=== PATIENT | male | born 1945 | race Caucasian/White ===

== ENCOUNTER 2025-01-06 12:38 | Inpatient (IN) | payer MEDICARE, OTHER, SELFPAY ==
[2025-01-06] VITALS (14 sets, daily range): BP systolic 90–180; BP diastolic 40–88; PULSE 81–90; RESP 12–19; TEMP 36.2–36.7; O2SAT 93–98; BMI 33.3
[2025-01-06 12:57] LABS: Add Manual Diff / Slide Review NO; Hematocrit 44.0 % (41-53); Hemoglobin 14.7 g/dL (13.5-17.5); Lymphocytes Absolute Auto 500 /uL (1100-4500); Mean Corpuscular HGB Conc 33.4 % (30-36); Mean Corpuscular Hemoglobin 30.4 PG (26-34); Mean Corpuscular Volume 91.1 fL (80-100); Platelet Count 208 X10^3/uL (150-400)
[2025-01-06 13:05] LABS: INR 1.1 (0.9-1.3); Prothrombin Time 12.7 SECONDS (9.4-12.5)
[2025-01-06 13:07] LABS: PTT Partial Thromboplastin Tim 27 SECONDS (25.1-36.5)
--- NOTE | 2025-01-06 13:07 | DI.CT.S_ITS ---
PROCEDURE: CT ANGIO ABD/PEL GI BLEED INDICATIONS: GI bleed TECHNIQUE: After the administration of intravenous contrast, 2.5 mm sections acquired from the diaphragm to the iliac crests. 10 mm maximum intensity projection (MIP) coronal and sagittal reformats were then performed. For radiation dose reduction, the following was used: automated exposure control. COMPARISON: None. FINDINGS: Image quality: Diagnostic. Abdominal aorta: No aortic aneurysm or evidence of acute aortic syndrome. Mesenteric arteries: Patent without hemodynamically significant stenosis. Renal arteries: Patent without hemodynamically significant stenosis. Lower chest: Moderate hiatal hernia. ABDOMEN: Liver: No solid mass. Gallbladder: No radiopaque gallstones or wall thickening. Biliary ducts: No biliary dilation. Pancreas: No ductal dilation. Spleen: Size is within normal limits. Adrenal Glands: No adrenal nodules. Kidneys and Ureters: No hydronephrosis. No solid mass. No complex renal cystic lesion which requires follow up. Bilateral renal sinus cysts. Stomach and Bowel: Severe wall thickening of the transverse and descending colon, with pericolonic fat stranding. Noninflamed diverticulum are present in the sigmoid colon. Normal appendix. No evidence of active hemorrhage. Peritoneum: No abnormal intraperitoneal fluid. No free air. Ventral Wall: No hernia. Abdominal Nodes: No retroperitoneal or mesenteric adenopathy by size criteria. Vessels: Aorta, as above. Normal IVC. PELVIS: Pelvic Organs: Unremarkable. Bladder: Unremarkable. Pelvic Nodes: No enlarged lymph nodes. Miscellaneous: Fat within the inguinal canals. Bones: No aggressive osseous abnormality. IMPRESSION: Colitis of the transverse and descending colon, with severe wall thickening. Extent raises the concern for C difficile. No evidence of active hemorrhage. Dictated by: Jonathan Brewer M.D. on 01/06/2025 at 13:36 Approved by: Jonathan Brewer M.D. on 01/06/2025 at 13:38
[2025-01-06 13:08] LABS: Alanine Aminotransferase 19 IU/L (<50); Albumin 4.7 g/dL (3.5-5.0); Albumin Globulin Ratio 1.5 (1.0-2.8); Alkaline Phosphatase 52 U/L (38-126); Blood Urea Nitrogen 40 mg/dL (9-20); Calcium 9.5 mg/dL (8.4-10.2); Carbon Dioxide 24 mmol/L (22-32); Chloride 101 mmol/L (98-107); Estimated Glomerular Filt Rate 48 mL/min (>60); Globulin 3.2 g/dL (1.7-4.1); Glucose 329 mg/dL (70-99); HEMOLYSIS < 15 (0-50); Potassium 4.1 mmol/L (3.4-5.1); Sodium 136 mmol/L (137-145); Total Protein 7.9 g/dL (6.3-8.2)
--- NOTE | 2025-01-06 14:33 | ED_ITS ---
HPI - GI Bleed General Chief complaint: GI Bleed Stated complaint: GI bleed Time Seen by Provider: 01/06/25 12:38 History of Present Illness HPI Narrative: 79-year-old gentleman comes with abdominal pain with blood in stool started earlier today and decreased appetite. Patient denies fever, chills, back pain, urinary complaints, shortness of breath, chest pain. Other than what is stated 14 point review of system is negative. Related Data Allergies Allergy/AdvReac Type Severity Reaction Status Date / Time [id number]-[id number] Reductase AdvReac Verified 01/06/25 12:44 Inhibitor Review of Systems Review of Systems ROS Unobtainable: All systems reviewed & are unremarkable except as noted in HPI and below Exam Narrative Exam Narrative: GENERAL: [79] year old patient appears stated age. Well-developed patient, in mild distress. HEAD: Atraumatic. Normocephalic. EYES: Pupils equal round and reactive. Extraocular motions intact. No scleral icterus. No injection or drainage. ENT: Nose without bleeding, purulent drainage. Throat without erythema, tonsillar hypertrophy or exudate. Airway patent. NECK: Trachea midline. Non tender CARDIOVASCULAR: Regular rate and rhythm without murmurs, gallops, or rubs. RESPIRATORY: Clear to auscultation. Breath sounds equal bilaterally. No wheezes, rales, or rhonchi. GASTROINTESTINAL: Abdomen soft, non-tender, nondistended. Rectal: Guaic positive no ext hemorrhoid or fissure seen EXTREMITIES: No edema or joint tenderness. BACK: Nontender without deformity or crepitance. No flank tenderness. NEURO: AOx3. SKIN: No rash or erythema of visible areas Initial Vital Signs Initial Vital Signs: Vital Signs Temperature 97.2 F L 01/06/25 12:43 Pulse Rate 84 01/06/25 12:43 Respiratory Rate 16 01/06/25 12:43 Blood Pressure 136/88 01/06/25 12:43 Pulse Oximetry 97 01/06/25 12:43 Oxygen Delivery Method Room Air 01/06/25 12:43 Course Orders Ordered: ED Orders 01/06/25 12:47 Complete Blood Count AUTO DIFF Stat Comprehensive Metabolic Panel Stat PTT Partial Thromboplastin Tesfaye Stat Prothrombin Time INR Stat 01/06/25 13:07 CT angio Abd/Pel GI Bleed Stat 01/06/25 13:35 Type and Screen Stat Ondansetron HCl (Ondansetron 4 Mg/2 Ml Inj) 4 mg IV NOW PRN PRN Reason: Nausea And Vomiting Ondansetron HCl (Ondansetron 4 Mg Odt) 4 mg PO NOW PRN PRN Reason: Nausea And Vomiting Vital Signs Vital signs: Vital Signs - 8 hr 01/06/25 12:43 01/06/25 12:43 01/06/25 12:43 Temperature 97.2 F L Pulse Rate 84 84 Respiratory Rate 16 Blood Pressure 136/88 156/68 H Pulse Oximetry 97 93 Oxygen Delivery Method Room Air 01/06/25 13:00 01/06/25 13:01 01/06/25 13:01 Temperature Pulse Rate 81 81 Respiratory Rate Blood Pressure 160/75 H Pulse Oximetry 97 97 Oxygen Delivery Method 01/06/25 13:30 01/06/25 13:42 01/06/25 13:42 Temperature Pulse Rate 83 82 Respiratory Rate 19 Blood Pressure 168/79 H Pulse Oximetry 97 97 Oxygen Delivery Method 01/06/25 14:00 01/06/25 14:00 Temperature Pulse Rate 81 Respiratory Rate 18 Blood Pressure 180/86 H Pulse Oximetry 96 Oxygen Delivery Method MDM - GI Bleed Lab Data 01/06/25 12:47 01/06/25 12:47 Labs: Lab Results 01/06/25 Range/Units 12:47 WBC 17.7 H (4.5-11.0) X10^3/uL RBC 4.83 (4.5-5.9) X10^6/uL Hgb 14.7 (13.5-17.5) g/dL Hct 44.0 (41-53) % MCV 91.1 (80-100) fL MCH 30.4 (26-34) PG MCHC 33.4 (30-36) % RDW 14.0 (11.6-14.8) % Plt Count 208 (150-400) X10^3/uL Neut % (Auto) 92.0 H (50-75) % Lymph % (Auto) 2.8 L (25-40) % [place] % (Auto) 4.7 (3-14) % Eos % (Auto) 0.2 L (2-4) % Baso % (Auto) 0.3 (0-2) % Neut # (Auto) 49625 H (3240-4702) /uL Lymph # (Auto) 500 L (9244-5157) /uL [place] # (Auto) 800 (0-900) /uL Eos # (Auto) 0 (0-450) /uL Baso # (Auto) 100 (0-100) /uL PT 12.7 H (9.4-12.5) SECONDS INR 1.1 (0.9-1.3) APTT 27 (25.1-36.5) SECONDS Sodium 136 L (137-145) mmol/L Potassium 4.1 (3.4-5.1) mmol/L Chloride 101 (98-107) mmol/L Carbon Dioxide 24 (22-32) mmol/L BUN 40 H (9-20) mg/dL Creatinine 1.48 H (0.66-1.25) mg/dL Estimated GFR 48 L (>60) mL/min BUN/Creatinine Ratio 27.0 H (6-22) Glucose 329 H (70-99) mg/dL Calcium 9.5 (8.4-10.2) mg/dL Total Bilirubin 0.7 (0.2-1.3) mg/dL AST 41 (17-59) IU/L ALT 19 (<50) IU/L Alkaline Phosphatase 52 (38-126) U/L Total Protein 7.9 (6.3-8.2) g/dL Albumin 4.7 (3.5-5.0) g/dL Globulin 3.2 (1.7-4.1) g/dL Albumin/Globulin Ratio 1.5 (1.0-2.8) Point of Care Testing Stool Occult Blood Positive Imaging Data CT scan - abdomen/pelvis: Radiologist's Impression: [place] [address] CT Scan Report Signed Patient: Roney Meraz MR#: [id number] : 1945 Acct:[id number] Age/Sex: 79 / M Date of Service: 01/06/25 Loc: ED Accession Number: [id number] Procedure: CT angio Abd/Pel GI Bleed Ordering Provider: Cristobal Urrutia D.O. PROCEDURE: CT ANGIO ABD/PEL GI BLEED INDICATIONS: GI bleed TECHNIQUE: After the administration of intravenous contrast, 2.5 mm sections acquired from the diaphragm to the iliac crests. 10 mm maximum intensity projection (MIP) coronal and sagittal reformats were then performed. For radiation dose reduction, the following was used: automated exposure control. COMPARISON: None. FINDINGS: Image quality: Diagnostic. Abdominal aorta: No aortic aneurysm or evidence of acute aortic syndrome. Mesenteric arteries: Patent without hemodynamically significant stenosis. Renal arteries: Patent without hemodynamically significant stenosis. Lower chest: Moderate hiatal hernia. ABDOMEN: Liver: No solid mass. Gallbladder: No radiopaque gallstones or wall thickening. Biliary ducts: No biliary dilation. Pancreas: No ductal dilation. Spleen: Size is within normal limits. Adrenal Glands: No adrenal nodules. Kidneys and Ureters: No hydronephrosis. No solid mass. No complex renal cystic lesion which requires follow up. Bilateral renal sinus cysts. Stomach and Bowel: Severe wall thickening of the transverse and descending colon, with pericolonic fat stranding. Noninflamed diverticulum are present in the sigmoid colon. Normal appendix. No evidence of active hemorrhage. Peritoneum: No abnormal intraperitoneal fluid. No free air. Ventral Wall: No hernia. Abdominal Nodes: No retroperitoneal or mesenteric adenopathy by size criteria. Vessels: Aorta, as above. Normal IVC. PELVIS: Pelvic Organs: Unremarkable. Bladder: Unremarkable. Pelvic Nodes: No enlarged lymph nodes. Miscellaneous: Fat within the inguinal canals. Bones: No aggressive osseous abnormality. IMPRESSION: Colitis of the transverse and descending colon, with severe wall thickening. Extent raises the concern for C difficile. No evidence of active hemorrhage. Dictated by: Jonathan Brewer M.D. on 01/06/2025 at 13:36 Approved by: Jonathan Brewer M.D. on 01/06/2025 at 13:38 MDM Narrative Medical decision making narrative: All lab work, vital signs, nurse triage note, medication list, previous ER visits, and all imaging studies reviewed.WBC 17.7 Hg 14.7 Plt 208 sodium 136 potassium 4.1 BUN [address] abdomen and pelvis colitis of the transverse and descending colon with severe wall thickening. . Extent raises concern for C diff evidence of active hemorrhage. Case discussed with Dr.Snedecker valentine IV flagyl Discharge Plan Departure Clinical Impression: Colitis
[2025-01-06 14:48] LABS: Lipase 33 U/L (23-300)
[2025-01-06] MEDS: metroNIDAZOLE 500 MG/100 ML PIGGYBACK 100 MG IV (14:58)
[2025-01-06] MEDS: ONDANSETRON 4 MG/2 ML INJ IV (14:58)
--- NOTE | 2025-01-06 16:15 | P.HP_ITS ---
History of Present Illness History of Present Illness Date Patient Seen: 01/06/25 Chief complaint: Colitis with abdominal pain rectal bleeding Narrative: Chief complaint Lower abdominal pain with colitis on CT with rectal bleeding History of present illness: 79-year-old male onset on the evening of 01/05 about 10:00 p.m. sudden severe abdominal pain sat on the toilet for about 2 hours past a large amount of stool followed by diarrhea with some bleeding. Throughout the day today is having increasing abdominal pain. Not had any vomiting but does not feel like eating much Workup in the emergency department significant for leukocytosis white count 95890 with 92% neutrophils PADDY BUN 40 creatinine 1.5 glucose [address] abdomen and pelvis: Colitis of the transverse and descending colon, with severe wall thickening. Extent raises the concern for C difficile. No evidence of active hemorrhag Patient eats beef chicken and foster and moose Was hunting in [place] at the end of October Review of systems: No fever or chills rigors No chest pain palpitations shortness for breath No urinary symptom Paresthesia No unusual weight loss or weight gain Physical exam: Elderly male large frame no acute distress HEENT unremarkable Heart rate and rhythm regular lungs clear Abdomen distended but nontender Extremities no edema Alert and oriented Neurologic nonfocal Assessment and plan: Colitis not a particular risk for Clostridium difficile colitis may be other infectious E coli Salmonella Shigella or other versus ischemic * Given Flagyl in the ED * Empiric Zosyn * GI film panel and C diff when produces fecal sample * Clear liquid diet advance as tolerated * IV fluid resuscitation Acute kidney injury * Likely due to prerenal * No signs of hemolysis bilirubin normal Type 2 diabetes mellitus with hyperglycemia * Sliding scale insulin as needed DVT prophylaxis: * SCDs only due to rectal bleeding Code status: * Full code blue Disposition: * Inpatient * Estimate 3 days of hospitalization Time based billing: * 55 minutes were involved in the evaluation of this patient including [id number] evaluation discussion with emergency provider review of images objective laboratory data patient examination discussion with treatment team Meds Home Medications and Allergies Allergies Allergy/AdvReac Type Severity Reaction Status Date / Time [id number] Reductase AdvReac Verified 01/06/25 12:44 Inhibitor Exam Vital Signs (past 8 hours): - 01/06/25 12:43 01/06/25 12:43 01/06/25 12:43 Temperature 97.2 F L Pulse Rate 84 84 Respiratory Rate 16 Blood Pressure 136/88 156/68 H Pulse Oximetry 97 93 Oxygen Delivery Method Room Air 01/06/25 13:00 01/06/25 13:01 01/06/25 13:01 Temperature Pulse Rate 81 81 Respiratory Rate Blood Pressure 160/75 H Pulse Oximetry 97 97 Oxygen Delivery Method 01/06/25 13:30 01/06/25 13:42 01/06/25 13:42 Temperature Pulse Rate 83 82 Respiratory Rate 19 Blood Pressure 168/79 H Pulse Oximetry 97 97 Oxygen Delivery Method 01/06/25 14:00 01/06/25 14:00 Temperature Pulse Rate 81 Respiratory Rate 18 Blood Pressure 180/86 H Pulse Oximetry 96 Oxygen Delivery Method Oxygen Delivery Method Room Air Objective Labs 01/06/25 12:47 01/06/25 12:47 Labs: Laboratory Results - last 24 hr 01/06/25 01/06/25 01/06/25 12:47 13:35 13:38 WBC 17.7 H RBC 4.83 Hgb 14.7 Hct 44.0 MCV 91.1 MCH 30.4 MCHC 33.4 RDW 14.0 Plt Count 208 Neut % (Auto) 92.0 H Lymph % (Auto) 2.8 L [place] % (Auto) 4.7 Eos % (Auto) 0.2 L Baso % (Auto) 0.3 Neut # (Auto) 16528 H Lymph # (Auto) 500 L [place] # (Auto) 800 Eos # (Auto) 0 Baso # (Auto) 100 PT 12.7 H INR 1.1 APTT 27 Sodium 136 L Potassium 4.1 Chloride 101 Carbon Dioxide 24 BUN 40 H Creatinine 1.48 H Estimated GFR 48 L BUN/Creatinine Ratio 27.0 H Glucose 329 H Calcium 9.5 Total Bilirubin 0.7 AST 41 ALT 19 Alkaline Phosphatase 52 Total Protein 7.9 Albumin 4.7 Globulin 3.2 Albumin/Globulin Ratio 1.5 Lipase 33 Blood Type A Negative Antibody Screen Negative Assessment & Plan Time-Based Coding :: [TOTAL MINUTES] spent with patient and on the chart (including review of chart, obtaining history, exam, reviewing outside data, placing orders, documenting exam and treatment plan, and counseling patient) on [DATE].
--- NOTE | 2025-01-06 17:08 | PC.NURSE ---
offered pt food, tray, wanted to go to room first, pt brought up in stretcher by [facility]
[2025-01-06] MEDS: PIPERACILLIN/TAZO 3.375 GM in SODIUM CHLORIDE 0.9% 100 ML IV (17:46)
[2025-01-06] MEDS: SODIUM CHLORIDE 0.9% 1,000 ML 100 ML IV (17:47)
--- NOTE | 2025-01-06 19:36 | PC.NURSE ---
pt admitted to 213 from ED, alert and oriented x 4, oriented to and hospital, call light within reach, bed alarmed.
[2025-01-07 00:06] LABS: Clostridium difficile toxin AB Not Detected (Not Detect); Enteroaggregative E.coli Not Detected (Not Detect); Enteropathogenic E.coli Not Detected (Not Detect); Enterotoxigenic E.coli It/st Not Detected (Not Detect); Plesiomonsa shigelloides Not Detected (Not Detect); Shiga-like toxin-prod E.coli Not Detected (Not Detect)
[2025-01-07] MEDS: PIPERACILLIN/TAZO 3.375 GM in SODIUM CHLORIDE 0.9% 100 ML IV ×3 (00:10→16:43)
[2025-01-07 07:45] VITALS: BP 134/56; PULSE 86; RESP 16; O2SAT 96
--- NOTE | 2025-01-07 08:04 | PC.NURSE ---
Patient is alert and oriented x4, he is moving well in his room. BS 198, patient states that he does not take insulin and his sugar has been high since being here. Abdomen is distended and slightly tender, bowel tones are hypoactive. Patient has been having bowel movements with blood present. Will monitor for this, he is using the bsc.
[2025-01-07 08:40] LABS: Add Manual Diff / Slide Review NO; Hematocrit 39.1 % (41-53); Hemoglobin 13.2 g/dL (13.5-17.5); Lymphocytes Absolute Auto 1200 /uL (1100-4500); Mean Corpuscular HGB Conc 33.8 % (30-36); Mean Corpuscular Hemoglobin 30.5 PG (26-34); Mean Corpuscular Volume 90.4 fL (80-100); Platelet Count 181 X10^3/uL (150-400)
[2025-01-07 08:57] LABS: Alanine Aminotransferase 13 IU/L (<50); Albumin 3.9 g/dL (3.5-5.0); Albumin Globulin Ratio 1.3 (1.0-2.8); Alkaline Phosphatase 49 U/L (38-126); Blood Urea Nitrogen 33 mg/dL (9-20); Calcium 8.6 mg/dL (8.4-10.2); Carbon Dioxide 23 mmol/L (22-32); Chloride 106 mmol/L (98-107); Estimated Glomerular Filt Rate > 60 mL/min (>60); Globulin 2.9 g/dL (1.7-4.1); Glucose 214 mg/dL (70-99); HEMOLYSIS < 15 (0-50); Potassium 3.5 mmol/L (3.4-5.1); Sodium 137 mmol/L (137-145); Total Protein 6.8 g/dL (6.3-8.2)
[2025-01-07] MEDS: ASPIRIN EC 81 MG TABLET PO (10:29)
[2025-01-07] MEDS: POTASSIUM CHLORIDE IN WATER 10 MEQ/100 ML PIGGYBACK 100 MEQ IV ×2 (10:29→11:59)
--- NOTE | 2025-01-07 14:09 | P.PN_ITS ---
Subjective Subjective Date Patient Seen: 01/07/25 Interval history: Chief complaint Lower abdominal pain with colitis on CT with rectal bleeding History of present illness: 01/06: 79-year-old male onset on the evening of 01/05 about 10:00 p.m. sudden severe abdominal pain sat on the toilet for about 2 hours past a large amount of stool followed by diarrhea with some bleeding. Throughout the day today is having increasing abdominal pain. Not had any vomiting but does not feel like eating much Workup in the emergency department significant for leukocytosis white count 46108 with 92% neutrophils PADDY BUN 40 creatinine 1.5 glucose [address] abdomen and pelvis: Colitis of the transverse and descending colon, with severe wall thickening. Extent raises the concern for C difficile. No evidence of active hemorrhag Patient eats beef chicken and foster and moose Was hunting in [place] at the end of October Hospital course: 01/07: Somewhat less abdominal pain today still having frequent liquid bowel movements with blood spraying the toilet bowl no fever or chills or rigors overnight able to eat solid food without excruciating abdominal pain but does not have a good appetite white count is still 17,000 with 85% neutrophils down from 92% BUN and creatinine improved to 33 and 1.1 Review of systems: No fever or chills rigors No chest pain palpitations shortness for breath No urinary symptom Paresthesia No unusual weight loss or weight gain Physical exam: Elderly male large frame no acute distress HEENT unremarkable Heart rate and rhythm regular lungs clear Abdomen distended but nontender Extremities no edema Alert and oriented Neurologic nonfocal Assessment and plan: Colitis not a particular risk for Clostridium difficile colitis may be other infectious E coli Salmonella Shigella or other versus ischemic * Given Flagyl in the ED * Empiric Zosyn * GI film panel and C diff when produces fecal sample * Clear liquid diet advance as tolerated * IV fluid resuscitation Acute kidney injury * Likely due to prerenal * No signs of hemolysis bilirubin normal Type 2 diabetes mellitus with hyperglycemia * Sliding scale insulin as needed DVT prophylaxis: * SCDs only due to rectal bleeding Code status: * Full code blue Disposition: * Inpatient * Estimate 3 days of hospitalization Time based billing: * 35 minutes were involved in the evaluation of this patient including [id number] evaluation discussion with emergency provider review of images objective laboratory data patient examination discussion with treatment team Exam Vital Signs (past 8 hours): Oxygen Delivery Method Room Air Oxygen Flow Rate 0 Objective Labs 01/07/25 08:25 01/07/25 08:25 Labs: Laboratory Results - last 24 hr 01/06/25 01/06/25 01/06/25 13:35 13:38 21:59 WBC RBC Hgb Hct MCV MCH MCHC RDW Plt Count Neut % (Auto) Lymph % (Auto) [place] % (Auto) Eos % (Auto) Baso % (Auto) Neut # (Auto) Lymph # (Auto) [place] # (Auto) Eos # (Auto) Baso # (Auto) Sodium Potassium Chloride Carbon Dioxide BUN Creatinine Estimated GFR BUN/Creatinine Ratio Glucose POC Whole Bld Glucose Calcium Total Bilirubin AST ALT Alkaline Phosphatase Total Protein Albumin Globulin Albumin/Globulin Ratio Lipase 33 Stl C. cayetanensis PCR Not detected Stool Rotavirus (PCR) Not detected Stool Adenovirus (PCR) Not detected Stool Astrovirus (PCR) Not detected Stool Cryptosporidium PCR Not detected Stl E.coli Shiga Tox PCR Not detected St Sh/Enteroin Ecoli PCR Not detected Stl Enterotoxigenic E PCR Not detected Stool EPEC (PCR) Not detected Stl E. histolytica PCR Not detected Stool Giardia Lamblia PCR Not detected Stool Sapovirus (PCR) Not detected Stl P. shigelloides PCR Not detected St Y.enterocolitica PCR Not detected Stool Vibrio (PCR) Not detected Stl Vibrio cholerae PCR Not detected Stl Enteroaggr Ecoli PCR Not detected Stl Norovirus GI/GII PCR Not detected Campylobacter (PCR) Not detected C. difficile Tox (PCR) Not detected Salmonella (PCR) Not detected Blood Type A Negative Antibody Screen Negative 01/07/25 01/07/25 01/07/25 07:56 08:25 11:57 WBC 17.2 H RBC 4.33 L Hgb 13.2 L Hct 39.1 L MCV 90.4 MCH 30.5 MCHC 33.8 RDW 13.7 Plt Count 181 Neut % (Auto) 84.6 H Lymph % (Auto) 6.9 L [place] % (Auto) 8.2 Eos % (Auto) 0.1 L Baso % (Auto) 0.2 Neut # (Auto) 92128 H Lymph # (Auto) 1200 [place] # (Auto) 1400 H Eos # (Auto) 0 Baso # (Auto) 0 Sodium 137 Potassium 3.5 Chloride 106 Carbon Dioxide 23 BUN 33 H Creatinine 1.13 Estimated GFR > 60 BUN/Creatinine Ratio 29.2 H Glucose 214 H D POC Whole Bld Glucose 198 H 206 H Calcium 8.6 Total Bilirubin 0.7 AST 25 ALT 13 Alkaline Phosphatase 49 Total Protein 6.8 Albumin 3.9 Globulin 2.9 Albumin/Globulin Ratio 1.3 Lipase Stl C. cayetanensis PCR Stool Rotavirus (PCR) Stool Adenovirus (PCR) Stool Astrovirus (PCR) Stool Cryptosporidium PCR Stl E.coli Shiga Tox PCR St Sh/Enteroin Ecoli PCR Stl Enterotoxigenic E PCR Stool EPEC (PCR) Stl E. histolytica PCR Stool Giardia Lamblia PCR Stool Sapovirus (PCR) Stl P. shigelloides PCR St Y.enterocolitica PCR Stool Vibrio (PCR) Stl Vibrio cholerae PCR Stl Enteroaggr Ecoli PCR Stl Norovirus GI/GII PCR Campylobacter (PCR) C. difficile Tox (PCR) Salmonella (PCR) Blood Type Antibody Screen PFSH Social History household members: spouse Smoking Status: Former smoker alcohol intake: current Assessment & Plan Time-Based Coding :: [TOTAL MINUTES] spent with patient and on the chart (including review of chart, obtaining history, exam, reviewing outside data, placing orders, documenting exam and treatment plan, and counseling patient) on [DATE]. Quality VTE Deep Vein Thrombosis/Pulmonary Embolism Present on Admission: No
--- NOTE | 2025-01-07 15:23 | CM.DANOTE ---
Patient is a 79 yo male who was admitted INPT Status on 01/06/25 for Abd Pain. Pt has MCR and REG MCR ADV(?) for insurance and his PCP is Matthew Herr. EMR was reviewed. Per MD, pt with Abd Pain and admitted with increased white count, colitis with rectal bleed, PADDY and to have IV abx and clear liquids and likely here a couple days. Per RN, pt has ambulated indep and steady in the room. SW met bedside briefly with pt as he was sleepy and explained role and he confirms he lives at home in [place] with his and is active and independent at baseline. Pt does not use DME for ambulation and still drives. Pt preference is to discharge home with spouse when stable and currently does not anticipate any discharge needs at this time. Would not likely meet criteria for being Homebound for HH. Plan: SW to follow for pt's progress and eventual advancing of his diet to confirm safe d/c home with spouse and any further identified discharge planning needs. KIKO Wang Discharge Planning/Care Management CM Discharge Assessment Start: 01/06/25 17:30 Freq: Status: Active Protocol: Document 01/07/25 15:22 BF (Rec: 01/07/25 15:23 BF [id number]) Discharge Planning Assessment Assigned Discharge KIKO Kelley Clam Sorter Provider Matthew Herr Insurance Medicare DPOA/Assigned spouse Designee Name Advance Directives? No Advance Directives No on File History Provided By Patient,Medical Record Has Patient been No admitted in last 30 days? Prior Living House Arrangements Household Members spouse Type of Drives own vehicle transporation used prior to admit Independent with ADL Yes 's Is patient alert and Yes oriented? Caregiver for No Another Barriers to No Discharge Discharge Plan Home Referrals Initiated None needed Whiteboard Updated Yes in Patient Room with name and ext. # of Director Manufacturing Engineering Review Status In Process Please Provide Date 01/07/25 Initial DC Assessment Was Performed Next Review Type Continued Stay Review
[2025-01-07] MEDS: SODIUM CHLORIDE 0.9% 1,000 ML 100 ML IV (16:43)
[2025-01-07 20:00] VITALS: BP 138/60; PULSE 71; RESP 18; TEMP 36.6; O2SAT 99
[2025-01-07] MEDS: SODIUM CHLORIDE 0.9% FLUSH 10 ML IV (20:44)
[2025-01-07] MEDS: PANTOPRAZOLE 40 MG VIAL IV (20:44)
[2025-01-07] MEDS: INSULIN LISPRO 100 UNIT/ML 3ML VIAL SUBCUT (23:36)
[2025-01-08] MEDS: PIPERACILLIN/TAZO 3.375 GM in SODIUM CHLORIDE 0.9% 100 ML IV ×3 (00:05→16:16)
--- NOTE | 2025-01-08 00:47 | PC.NURSE ---
Patient is alert and oriented. Breath sounds CTA with RA sat of 99%. HRR. Denied nausea. BT present and is passing flatus but has had no stools this shift but reports 4 on previous shift and states there was less blood noted in the last stool he had. Does complain of 6/10 achy abdominal pain but has declined any pain medication stating the pain is tolerable. Is voiding per urinal and denied any dysuria. States he feels generalized weakness but is stable on his feet and insists on independent mobility. Did agree to call if feeling dizzy or lightheaded when getting up. Declined to wear SCD's so reminded to ankle wave when awake. 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 CBG was [address] Brock was contacted and order received for sliding scale insuline. Fall risk score is moderate but bed alarm not needed at this time.
[2025-01-08] MEDS: SODIUM CHLORIDE 0.9% 1,000 ML 100 ML IV ×3 (03:14→23:00)
[2025-01-08 06:59] LABS: Blood Urea Nitrogen 18 mg/dL (9-20); Calcium 8.3 mg/dL (8.4-10.2); Carbon Dioxide 25 mmol/L (22-32); Chloride 106 mmol/L (98-107); Estimated Glomerular Filt Rate > 60 mL/min (>60); Glucose 193 mg/dL (70-99); HEMOLYSIS < 15 (0-50); Potassium 3.5 mmol/L (3.4-5.1); Sodium 137 mmol/L (137-145)
[2025-01-08 08:34] LABS: Add Manual Diff / Slide Review NO; Hematocrit 35.5 % (41-53); Hemoglobin 12.1 g/dL (13.5-17.5); Lymphocytes Absolute Auto 1500 /uL (1100-4500); Mean Corpuscular HGB Conc 34.2 % (30-36); Mean Corpuscular Hemoglobin 30.9 PG (26-34); Mean Corpuscular Volume 90.4 fL (80-100); Platelet Count 168 X10^3/uL (150-400)
[2025-01-08 08:35] VITALS: BP 125/49; PULSE 81; RESP 17; TEMP 36.9; O2SAT 93
[2025-01-08] MEDS: ASPIRIN EC 81 MG TABLET PO (09:25)
[2025-01-08] MEDS: INSULIN LISPRO 100 UNIT/ML 3ML VIAL SUBCUT ×3 (09:26→17:39)
[2025-01-08] MEDS: SODIUM CHLORIDE 0.9% FLUSH 10 ML IV ×2 (09:27→20:23)
[2025-01-08] MEDS: POTASSIUM CHLORIDE 20 MEQ/15 ML UDC 40 MEQ PO (09:33)
--- NOTE | 2025-01-08 12:32 | CM.DPNOTE ---
DCP Continued: Reviewed EMR and team rounds for pt?s medical status. Per hosptialist, pt is negative for C-Diff but will still require another night admitted. Per RN, pt independent and mobilizing in room, still experiencing pain but tolerable. No discharge needs identified at this time. Plan: Anticipating discharge home with spouse to transport on 01/09 or when medically cleared. CM Team will continue to follow for coordination of discharge plans. KIANA Hager
[2025-01-08 14:19] LABS: Hemoglobin A1C% w Est Avg Glu 7.0 % (4.0-6.0)
--- NOTE | 2025-01-08 16:14 | P.PN_ITS ---
Subjective Subjective Date Patient Seen: 01/08/25 Interval history: Chief complaint Lower abdominal pain with colitis on CT with rectal bleeding History of present illness: 01/06: 79-year-old male onset on the evening of 01/05 about 10:00 p.m. sudden severe abdominal pain sat on the toilet for about 2 hours past a large amount of stool followed by diarrhea with some bleeding. Throughout the day today is having increasing abdominal pain. Not had any vomiting but does not feel like eating much Workup in the emergency department significant for leukocytosis white count [id number] with 92% neutrophils PADDY BUN 40 creatinine 1.5 glucose [address] abdomen and pelvis: Colitis of the transverse and descending colon, with severe wall thickening. Extent raises the concern for C difficile. No evidence of active hemorrhag Patient eats beef chicken and foster and moose Was hunting in [place] at the end of October Hospital course: 01/07: Somewhat less abdominal pain today still having frequent liquid bowel movements with blood spraying the toilet bowl no fever or chills or rigors overnight able to eat solid food without excruciating abdominal pain but does not have a good appetite white count is still 17,000 with 85% neutrophils down from 92% BUN and creatinine improved to 33 and 1.1 01/08: Patient has had no more rectal bleeding but is still having tenesmus with frequent liquid bowel movement but is feeling less sick than yesterday but still not feeling well getting nausea and abdominal pain after eating Review of systems: No fever or chills rigors No chest pain palpitations shortness for breath No urinary symptom Paresthesia No unusual weight loss or weight gain Physical exam: Elderly male large frame no acute distress HEENT unremarkable Heart rate and rhythm regular lungs clear Abdomen distended but nontender Extremities no edema Alert and oriented Neurologic nonfocal Assessment and plan: Colitis not a particular risk for Clostridium difficile colitis may be other infectious E coli Salmonella Shigella or other versus ischemic * Continue Empiric Zosyn * GI film panel and C diff negative * Clear liquid diet advance as tolerated * Contain IV fluid resuscitation Acute kidney injury * Likely due to prerenal resolving * No signs of hemolysis bilirubin normal Type 2 diabetes mellitus with hyperglycemia * Sliding scale insulin as needed DVT prophylaxis: * SCDs only due to rectal bleeding Code status: * Full code blue Disposition: * Inpatient * Estimate 3 days of hospitalization Time based billing: * 35 minutes were involved in the evaluation of this patient including [id number] evaluation discussion with emergency provider review of images objective laboratory data patient examination discussion with treatment team Exam Vital Signs (past 8 hours): Oxygen Delivery Method Room Air Oxygen Flow Rate 0 Objective Labs 01/08/25 06:20 01/08/25 06:20 Labs: Laboratory Results - last 24 hr 01/07/25 01/07/25 01/08/25 16:39 20:29 03:39 WBC RBC Hgb Hct MCV MCH MCHC RDW Plt Count Neut % (Auto) Lymph % (Auto) [place] % (Auto) Eos % (Auto) Baso % (Auto) Neut # (Auto) Lymph # (Auto) [place] # (Auto) Eos # (Auto) Baso # (Auto) Sodium Potassium Chloride Carbon Dioxide BUN Creatinine Estimated GFR BUN/Creatinine Ratio Glucose POC Whole Bld Glucose 209 H 233 H 203 H Hemoglobin A1c Calcium 01/08/25 01/08/25 06:20 07:25 WBC 15.8 H RBC 3.92 L Hgb 12.1 L Hct 35.5 L MCV 90.4 MCH 30.9 MCHC 34.2 RDW 14.1 Plt Count 168 Neut % (Auto) 80.9 H Lymph % (Auto) 9.6 L [place] % (Auto) 9.4 Eos % (Auto) 0.0 L Baso % (Auto) 0.1 Neut # (Auto) 53689 H Lymph # (Auto) 1500 [place] # (Auto) 1500 H Eos # (Auto) 0 Baso # (Auto) 0 Sodium 137 Potassium 3.5 Chloride 106 Carbon Dioxide 25 BUN 18 Creatinine 0.90 Estimated GFR > 60 BUN/Creatinine Ratio 20.0 Glucose 193 H POC Whole Bld Glucose 185 H Hemoglobin A1c 7.0 H Calcium 8.3 L PFSH Social History household members: spouse Smoking Status: Former smoker alcohol intake: current Assessment & Plan Time-Based Coding :: [TOTAL MINUTES] spent with patient and on the chart (including review of chart, obtaining history, exam, reviewing outside data, placing orders, documenting exam and treatment plan, and counseling patient) on [DATE]. Quality VTE Deep Vein Thrombosis/Pulmonary Embolism Present on Admission: No
[2025-01-08 20:00] VITALS: BP 136/57; PULSE 70; RESP 15; TEMP 36.5; O2SAT 99
[2025-01-08] MEDS: PANTOPRAZOLE 40 MG VIAL IV (20:23)
[2025-01-09] MEDS: PIPERACILLIN/TAZO 3.375 GM in SODIUM CHLORIDE 0.9% 100 ML IV ×3 (00:45→17:35)
[2025-01-09 05:43] LABS: Blood Urea Nitrogen 11 mg/dL (9-20); Calcium 7.9 mg/dL (8.4-10.2); Carbon Dioxide 22 mmol/L (22-32); Chloride 109 mmol/L (98-107); Estimated Glomerular Filt Rate > 60 mL/min (>60); Glucose 174 mg/dL (70-99); HEMOLYSIS < 15 (0-50); Potassium 3.5 mmol/L (3.4-5.1); Sodium 137 mmol/L (137-145)
[2025-01-09] MEDS: ASPIRIN EC 81 MG TABLET PO (08:30)
[2025-01-09] MEDS: INSULIN LISPRO 100 UNIT/ML 3ML VIAL SUBCUT ×4 (08:30→21:16)
--- NOTE | 2025-01-09 09:06 | PC.NURSE ---
Assess- Patient is alert and oriented x4, he denies discomfort at this time. Tolerating full liquid diet, bt are hypoactive but present. Up adlib, iv antibiotic infusing now.
[2025-01-09 12:00] VITALS: BP 129/49; PULSE 62; RESP 15; TEMP 37.1; O2SAT 97
[2025-01-09] MEDS: POTASSIUM CHLORIDE 20 MEQ TAB 40 MEQ PO (12:08)
[2025-01-09] MEDS: SODIUM CHLORIDE 0.9% 1,000 ML 100 ML IV ×2 (12:10→22:18)
--- NOTE | 2025-01-09 12:32 | P.PN_ITS ---
Subjective Subjective Date Patient Seen: 01/09/25 Interval history: Chief complaint Lower abdominal pain with colitis on CT with rectal bleeding History of present illness: 01/06: 79-year-old male onset on the evening of 01/05 about 10:00 p.m. sudden severe abdominal pain sat on the toilet for about 2 hours past a large amount of stool followed by diarrhea with some bleeding. Throughout the day today is having increasing abdominal pain. Not had any vomiting but does not feel like eating much Workup in the emergency department significant for leukocytosis white count 83092 with 92% neutrophils PADDY BUN 40 creatinine 1.5 glucose [address] abdomen and pelvis: Colitis of the transverse and descending colon, with severe wall thickening. Extent raises the concern for C difficile. No evidence of active hemorrhag Patient eats beef chicken and foster and moose Was hunting in [place] at the end of October Hospital course: 01/07: Somewhat less abdominal pain today still having frequent liquid bowel movements with blood spraying the toilet bowl no fever or chills or rigors overnight able to eat solid food without excruciating abdominal pain but does not have a good appetite white count is still 17,000 with 85% neutrophils down from 92% BUN and creatinine improved to 33 and 1.1 01/08: Patient has had no more rectal bleeding but is still having tenesmus with frequent liquid bowel movement but is feeling less sick than yesterday but still not feeling well getting nausea and abdominal pain after eating 01/09: Diarrhea has slowed down no more rectal bleeding tolerating diet better Review of systems: No fever or chills rigors No chest pain palpitations shortness for breath No urinary symptom Paresthesia No unusual weight loss or weight gain Physical exam: Elderly male large frame no acute distress HEENT unremarkable Heart rate and rhythm regular lungs clear Abdomen distended but nontender Extremities no edema Alert and oriented Neurologic nonfocal Assessment and plan: Colitis not a particular risk for Clostridium difficile colitis may be other infectious E coli Salmonella Shigella or other versus ischemic * Continue Empiric Zosyn * GI film panel and C diff negative * Clear liquid diet advance as tolerated * Contain IV fluid resuscitation Acute kidney injury * Likely due to prerenal resolving * No signs of hemolysis bilirubin normal Type 2 diabetes mellitus with hyperglycemia * Sliding scale insulin as needed DVT prophylaxis: * SCDs only due to rectal bleeding Code status: * Full code blue Disposition: * Inpatient * Estimate to more days of hospitalization Time based billing: * 35 minutes were involved in the evaluation of this patient including [id number] evaluation discussion with emergency provider review of images objective laboratory data patient examination discussion with treatment team Exam Vital Signs (past 8 hours): - 01/09/25 12:00 Temperature 98.8 F Pulse Rate 62 Respiratory Rate 15 Blood Pressure 129/49 L Pulse Oximetry 97 Oxygen Flow Rate 0 Oxygen Delivery Method Room Air Oxygen Flow Rate 0 Objective Labs 01/08/25 06:20 01/09/25 05:02 Labs: Laboratory Results - last 24 hr 01/08/25 01/08/25 01/08/25 06:20 12:31 17:34 Sodium Potassium Chloride Carbon Dioxide BUN Creatinine Estimated GFR BUN/Creatinine Ratio Glucose POC Whole Bld Glucose 199 H 160 H Hemoglobin A1c 7.0 H Calcium 01/08/25 01/09/25 01/09/25 20:06 05:02 08:06 Sodium 137 Potassium 3.5 Chloride 109 H Carbon Dioxide 22 BUN 11 Creatinine 0.80 Estimated GFR > 60 BUN/Creatinine Ratio 13.8 Glucose 174 H POC Whole Bld Glucose 184 H 167 H Hemoglobin A1c Calcium 7.9 L 01/09/25 12:02 Sodium Potassium Chloride Carbon Dioxide BUN Creatinine Estimated GFR BUN/Creatinine Ratio Glucose POC Whole Bld Glucose 221 H Hemoglobin A1c Calcium PFSH Social History household members: spouse Smoking Status: Former smoker alcohol intake: current Assessment & Plan Time-Based Coding :: [TOTAL MINUTES] spent with patient and on the chart (including review of chart, obtaining history, exam, reviewing outside data, placing orders, documenting exam and treatment plan, and counseling patient) on [DATE]. Quality VTE Deep Vein Thrombosis/Pulmonary Embolism Present on Admission: No
--- NOTE | 2025-01-09 14:15 | CM.DPC ---
DCP Cont. Review EMR and team rounds for pt's medical status and updates. Per Hospitalist, pt will need 2-more days before being medically cleared for home d/c. Monitoring for final needs.
[2025-01-09 20:00] VITALS: BP 147/49; PULSE 55; RESP 17; TEMP 36.6; O2SAT 97
[2025-01-09] MEDS: PANTOPRAZOLE DR 40 MG TABLET PO (21:18)
[2025-01-10] MEDS: PIPERACILLIN/TAZO 3.375 GM in SODIUM CHLORIDE 0.9% 100 ML IV ×2 (00:18→08:40)
[2025-01-10 05:04] LABS: Blood Urea Nitrogen 9 mg/dL (9-20); Calcium 8.4 mg/dL (8.4-10.2); Carbon Dioxide 25 mmol/L (22-32); Chloride 106 mmol/L (98-107); Estimated Glomerular Filt Rate > 60 mL/min (>60); Glucose 163 mg/dL (70-99); HEMOLYSIS < 15 (0-50); Potassium 3.4 mmol/L (3.4-5.1); Sodium 138 mmol/L (137-145)
[2025-01-10] MEDS: ASPIRIN EC 81 MG TABLET PO (08:40)
[2025-01-10] MEDS: INSULIN LISPRO 100 UNIT/ML 3ML VIAL SUBCUT ×2 (08:40→12:07)
[2025-01-10] MEDS: SODIUM CHLORIDE 0.9% 1,000 ML 100 ML IV (08:41)
--- NOTE | 2025-01-10 09:38 | P.DS_ITS ---
History of Present Illness History of Present Illness Date Patient Seen: 01/10/25 Chief complaint: Colitis with abdominal pain rectal bleeding Narrative: Chief complaint Lower abdominal pain with colitis on CT with rectal bleeding History of present illness: 01/06: 79-year-old male onset on the evening of 01/05 about 10:00 p.m. sudden severe abdominal pain sat on the toilet for about 2 hours past a large amount of stool followed by diarrhea with some bleeding. Throughout the day today is having increasing abdominal pain. Not had any vomiting but does not feel like eating much Workup in the emergency department significant for leukocytosis white count [id number] with 92% neutrophils PADDY BUN 40 creatinine 1.5 glucose [address] abdomen and pelvis: Colitis of the transverse and descending colon, with severe wall thickening. Extent raises the concern for C difficile. No evidence of active hemorrhag Patient eats beef chicken and foster and moose Was hunting in [place] at the end of October Hospital course: 01/07: Somewhat less abdominal pain today still having frequent liquid bowel movements with blood spraying the toilet bowl no fever or chills or rigors overnight able to eat solid food without excruciating abdominal pain but does not have a good appetite white count is still 17,000 with 85% neutrophils down from 92% BUN and creatinine improved to 33 and 1.1 01/08: Patient has had no more rectal bleeding but is still having tenesmus with frequent liquid bowel movement but is feeling less sick than yesterday but still not feeling well getting nausea and abdominal pain after eating 01/09: Diarrhea has slowed down no more rectal bleeding tolerating diet better Review of systems: No fever or chills rigors No chest pain palpitations shortness for breath No urinary symptom Paresthesia No unusual weight loss or weight gain Physical exam: Elderly male large frame no acute distress HEENT unremarkable Heart rate and rhythm regular lungs clear Abdomen distended but nontender Extremities no edema Alert and oriented Neurologic nonfocal Assessment and plan: Colitis not a particular risk for Clostridium difficile colitis may be other infectious E coli Salmonella Shigella or other versus ischemic * Discharge to home on Cipro and Flagyl Acute kidney injury * Likely due to prerenal resolving * No signs of hemolysis bilirubin normal Type 2 diabetes mellitus with hyperglycemia * Sliding scale insulin as needed DVT prophylaxis: * SCDs only due to rectal bleeding Code status: * Full code blue Disposition: * Discharge to home on Cipro and Flagyl Time based billing: * 35 minutes were involved in the evaluation of this patient including [id number] evaluation discussion with emergency provider review of images objective laboratory data patient examination discussion with treatment team Discharge Providers Provider Date of admission: 01/06/25 15:13 Discharge Date: 01/10/25 Primary care physician: Matthew Herr MD Consults: 01/08/25 13:41 Consult to Pharmacy Routine Comment: If new meds upon discharge Discharge provider: Arturo Bryant MD Exam Vital Signs (past 8 hours): Oxygen Delivery Method Room Air Oxygen Flow Rate 0 Objective Labs 01/08/25 06:20 01/10/25 04:33 Labs: Laboratory Results - last 24 hr 01/09/25 01/09/25 01/09/25 12:02 17:10 20:30 Sodium Potassium Chloride Carbon Dioxide BUN Creatinine Estimated GFR BUN/Creatinine Ratio Glucose POC Whole Bld Glucose 221 H 154 H 205 H Calcium 01/10/25 01/10/25 04:33 07:55 Sodium 138 Potassium 3.4 Chloride 106 Carbon Dioxide 25 BUN 9 Creatinine 0.93 Estimated GFR > 60 BUN/Creatinine Ratio 9.7 Glucose 163 H POC Whole Bld Glucose 173 H Calcium 8.4 PFSH Social History household members: spouse Smoking Status: Former smoker alcohol intake: current Discharge Plan Discharge Plan Patient Disposition: Home Discharge orders & Medications Prescriptions: New metronidazole 500 mg tablet 500 mg PO QID Qty: 20 0RF ciprofloxacin HCl 500 mg tablet 500 mg PO BID Qty: 10 0RF Continued lisinopril 20 mg tablet 20 mg PO DAILY glimepiride 1 mg tablet 1 mg PO QPM metformin 1,000 mg tablet 1,000 mg PO BID hydrochlorothiazide 25 mg tablet 25 mg PO DAILY gabapentin 100 mg capsule 300 mg PO BEDTIME PRN (Reason: nerve pain) ezetimibe 10 mg tablet 10 mg PO DAILY aspirin 81 mg capsule 81 mg PO DAILY calcium phos,dibas-vitamin D3 77-400 mg-unit tablet 1 tab PO DAILY Fish Oil Patient Comments: takes a RX fish oil, unsure of name and dose Follow up/Referrals: Matthew Herr MD [Primary Care Provider, Internal Medicine] Visit Report/Discharge Packet Stand Alone Forms: Patient Portal/API, Stroke Signs & Symptoms Discharge Data Primary Care Provider: Matthew Herr Quality VTE Deep Vein Thrombosis/Pulmonary Embolism Present on Admission: No
[2025-01-10 10:24] VITALS: BP 153/53; PULSE 96; RESP 18; TEMP 36.7; O2SAT 96
[2025-01-10 11:45] VITALS: BMI 33.3
== END 2025-01-10 14:01 | disposition home or self-care (01) | DRG 392 ==
LOC: ED 15:13 → AC 15:14
PROVIDERS: Admitting Provider Internal Medicine; Emergency Provider Family Medicine; PCP Internal Medicine; Referring Provider Family Medicine; Visit Provider Internal Medicine
DX: A09 Infectious gastroenteritis and colitis, unspecified (principal); N17.9 Acute kidney failure, unspecified; K55.9 Vascular disorder of intestine, unspecified; E11.65 Type 2 diabetes mellitus with hyperglycemia; Z87.891 Personal history of nicotine dependence; Z79.84 Long term (current) use of oral hypoglycemic drugs
CPT/HCPCS: 36415; 74174; 80048; 80053; 81003; 82272; 82962; 83036; 83690; 85025; 85610; 85730; 86850; 86900; 86901; 87507; 96365; 96375; 99284; J1171; J1815; J2405; J2470; J2543; J7030; J7050; Q9967